=== PATIENT | female | born 1955 | race Caucasian/White ===

== ENCOUNTER 2022-10-21 08:44 | Emergency (ER) | payer MEDICARE ==
[~2022-10-21] VITALS: Ht 170.2 cm; Wt 87.5 kg
[2022-10-21] MEDS: LIDOCAINE 5% TOPICAL PATCH TP ONE (10:24)
[2022-10-21] MEDS: DIAZEPAM 2 MG TAB PO ONE (10:24)
[2022-10-21] MEDS: KETOROLAC 30MG VIAL (30MG/ML) IM ONE (12:18)
[2022-10-21 13:15] VITALS: BP 135/68
[2022-10-21] MEDS ORDERED: CYCL-309 PO (14:01)
== END 2022-10-21 14:21 | disposition home or self-care (01) ==
LOC: EDH 08:44
DX: M62.830 Muscle spasm of back (principal); Z79.1 Long term (current) use of non-steroidal anti-inflammatories (NSAID)
CPT/HCPCS: 99285; 96372; J1885